=== PATIENT | male | born 1970 | race Caucasian/White ===

== ENCOUNTER 2016-08-12 22:31 | Emergency (ER) | payer SELFPAY ==
[~2016-08-12] VITALS: Ht 167.6 cm; Wt 72.0 kg
[2016-08-12 22:34] VITALS: Ht 167.6 cm; Wt 72.0 kg
[2016-08-13] MEDS ORDERED: FLUORESCEIN STRIP LEFT EYE ONE (01:00)
[2016-08-13] MEDS ORDERED: TETRACAINE 0.5% 4 ML OPH LEFT EYE ONE (01:00)
[2016-08-13] MEDS ORDERED: OFLO5DRO46 LEFT EYE (02:15)
--- NOTE | 2016-08-13 02:40 | ERD ---
ER Documentation Chief Complaint Date/Time DATE: 08/13/16 TIME: 02:38 Chief Complaint pt reports may have metal in l eye from work HPI 45-year-old male patient with no significant past medical history presents the ED complaining of a metal that got into his left eye while he was working. States that he has some slight left eye pain. Denies wearing glasses or contacts. Denies any fever, chills, abdominal pain, nausea, vomiting, diplopia , photophobia. Denies any vision loss. States that he was not wearing any protective glasses. ROS All systems reviewed and are negative except as per history of present illness. Medications Home Meds Active Scripts Ofloxacin* (Ocuflox*) 0.3%-5 Ml Ophth Drops, 1 DROP LEFT EYE QID for 7 Days, #1 BOTTLE Prov:SERA TRINIDAD PA-C 08/13/16 PMhx/Soc Medical and Surgical Hx: pt denies Medical Hx, pt denies Surgical Hx History of Surgery: No Anesthesia Reaction: No Hx Neurological Disorder: No Hx Respiratory Disorders: No Hx Cardiac Disorders: No Hx Psychiatric Problems: No Hx Miscellaneous Medical Probl: No Hx Alcohol Use: No Hx Substance Use: No Hx Tobacco Use: Yes Smoking Status: Current every day smoker Physical Exam Vitals Vital Signs Date Time Temp Pulse Resp B/P Pulse Ox O2 Delivery O2 Flow Rate FiO2 08/12/16 22:34 98.3 77 20 139/94 97 Physical Exam Const: [id number], well-nourished. In no acute distress. Head: Atraumatic, normocephalic Eyes: Right normal Conjunctiva without injection. Slight left eye conjunctiva injection with a 1 mm piece of metal noted on the inner medial side of the left cornea. No purulent discharge. PERRLA. EOMI ENT: Normal external ear. Ear canal without erythema. Tympanic membrane pearly payne without effusion or bulging. Nasal canal clear with normal turbinates. Moist oropharynx without tonsillar exudates. Non-erythematous pharynx. Uvula midline. No drooling. No trismus. Neck: No cervical midline tenderness. Full range of motion. No meningismus. No cervical lymphadenopathy. No JVD. Resp: Clear to auscultation bilaterally. No wheezing, rhonchi, rales, or crackles. No accessory muscle use. No retractions. Cardio: Regular rate and rhythm. No murmurs, rubs or gallops. Abd: Soft, non tender, non distended. Normal bowel sounds. No palpable masses. No rebound tenderness. No guarding. Negative McBurney's Point. Negative Krishnan's Sign. Skin: Normal skin turgor. No petechiae or rashes Back: No midline tenderness. No CVA tenderness. Ext: No cyanosis, or edema. Distal pulses intact bilaterally. Neur: Awake and alert. Normal gait. Normal coordination. Cranial Nerves II- VII intact. Normal finger to nose. Muscle strength 5/5. Sensation intact. Psych: Normal Mood and Affect Results 24 hrs Current Medications Medications (Trade) Dose Ordered Sig/Becky Route PRN Reason Start Time Stop Time Status Last Admin Dose Admin Tetracaine HCl (Tetracaine 0.5% Steri-Unit Raven) 1 drop ONCE ONCE LEFT EYE 08/13/16 01:00 08/13/16 01:01 DC 08/13/16 01:40 Fluorescein Sodium (Skjkt-K-Dwvpr) 1 strip ONCE ONCE LEFT EYE 08/13/16 01:00 08/13/16 01:01 DC 08/13/16 01:40 Procedures/MDM This is a 45-year-old male patient with no significant past medical history presents the ED complaining of a piece of metal on his left eye after work. Reports that he is not going through Worker's Compensation. Patient is afebrile nontoxic appearing. Patient has normal vital signs. Eye Exam w/ Wood' s lamp: Visual Acuity: Right 20/20 Left 20/30 Bilateral 20/30 Visual Holt: Intact in all four quadrants bilaterally Lac ducts/glands: No swelling Lids w/ evertion: Normal, Piece of 1 mm metal noted of left eye Conj/[place]: Clear, negative Fluorescein/Nelson's Anterior Chamber: Clear Low suspicion for ruptured globe, retinal detachment, periorbital cellulitis, acute angle closure glaucoma, deep space infection, iritis, traumatic hyphema, conjunctivitis, subconjunctival hemorrhage, corneal abrasion, corneal ulcer, pterygium, hypopyon, blepharitis, hordeolum, chalazion, or other emergent conditions. This case was discussed with Dr. Gtz who agreed with the management and discharge plan. 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 Instructed patient to return to the ED for any worsening symptoms. Patient is hemodynamically stable. Patient's questions were answered. Patient understood and agreed with discharge plan. Departure Diagnosis: Primary Impression: Foreign body of left eye Encounter type: initial encounter Qualified Code: T15.92XA - Foreign body of left eye, initial encounter Condition: Stable Patient Instructions: Foreign Object in the Cornea Referrals: [facility] YOU HAVE RECEIVED A MEDICAL SCREENING EXAM AND THE RESULTS INDICATE THAT YOU DO NOT HAVE A CONDITION THAT REQUIRES URGENT TREATMENT IN THE EMERGENCY DEPARTMENT. FURTHER EVALUATION AND TREATMENT OF YOUR CONDITION CAN WAIT UNTIL YOU ARE SEEN IN YOUR DOCTORS OFFICE WITHIN THE NEXT 1-2 DAYS. IT IS YOUR RESPONSIBILITY TO MAKE AN APPOINTMENT FOR FOLOW-UP CARE. IF YOU HAVE A PRIMARY DOCTOR --you should call your primary doctor and schedule an appointment IF YOU DO NOT HAVE A PRIMARY DOCTOR YOU CAN CALL OUR PHYSICIAN REFERRAL HOTLINE AT IF YOU CAN NOT AFFORD TO SEE A PHYSICIAN YOU CAN CHOSE FROM THE FOLLOWING [facility] [address] [employer] [facility]. [facility] [address] [facility] [facility]. [facility] [address] [facility]. [facility] [address] [facility]. [facility] [address] [facility]. [facility]. [address] [facility]. [facility] YOU HAVE RECEIVED A MEDICAL SCREENING EXAM AND THE RESULTS INDICATE THAT YOU DO NOT HAVE A CONDITION THAT REQUIRES URGENT TREATMENT IN THE EMERGENCY DEPARTMENT. FURTHER EVALUATION AND TREATMENT OF YOUR CONDITION CAN WAIT UNTIL YOU ARE SEEN IN YOUR DOCTORS OFFICE WITHIN THE NEXT 1-2 DAYS. IT IS YOUR RESPONSIBILITY TO MAKE AN APPOINTMENT FOR FOLOW-UP CARE. IF YOU HAVE A PRIMARY DOCTOR --you should call your primary doctor and schedule and appointment IF YOU DO NOT HAVE A PRIMARY DOCTOR YOU CAN CALL OUR PHYSICIAN REFERRAL HOTLINE AT . IF YOU CAN NOT AFFORD TO SEE A PHYSICIAN YOU CAN CHOSE FROM THE FOLLOWING [facility] INSTITUTIONS[facility] [address] [place] [address] [facility] [address] [place] [address] [facility] + [facility] [address] [place] [address] [facility] Hours: Mon - Fri 9:00 AM - 5:00 PM Additional Instructions: Es muy importnant para usted seguir con oftalmlogo dentro de las 8-12 horas para la extraccin del metal de lopez harris cristian en el [facility] o el [facility]. Regrese a estas instalaciones si no se mejora harvey esperbamos o harvey le dijimos. SERA TRINIDAD PA-C Aug 13, 2016 02:40 SERA TRINIDAD PA-C Aug 13, 2016 02:40
== END 2016-08-13 02:44 | disposition left against medical advice (07) ==
LOC: FTE 22:31
DX: T15.92XA Foreign body on external eye, part unspecified, left eye, initial encounter (principal); F17.210 Nicotine dependence, cigarettes, uncomplicated; X58.XXXA Exposure to other specified factors, initial encounter; Y92.89 Other specified places as the place of occurrence of the external cause
CPT/HCPCS: 99283